=== PATIENT | male | born 1955 | race Caucasian/White ===

== ENCOUNTER 2020-01-03 07:41 | Day surgery (SDC) | payer OTHER ==
[~2020-01-03 07:41] MED LIST: Lactated Ringers 1,000 ML IV SCH
[2020-01-03] MEDS ORDERED: Propofol 200 MG/20 ML SDV ONE ×2 (08:03→10:34)
[2020-01-03] MEDS ORDERED: fentaNYL 100 MCG/2 ML SDV ONE (08:03)
--- NOTE | 2020-01-03 15:01 | OR ---
PRE-OPERATIVE DIAGNOSIS: Positive Cologuard screening. This is the patient's first colonoscopy. He denies any known family history of colon cancer or colon polyps. POST-OPERATIVE DIAGNOSES: 1. 12 mm polyp at 25 cm from the anal verge. This was removed with 2 passes of the hot snare. 2. Otherwise normal-appearing colonic mucosa as well as normal-appearing distal ileum. PROCEDURE: Colonoscopy with polypectomy x1 using hot snare x2 passes. SURGEON: Wiley Loza M.D. ANESTHESIA: Monitored anesthesia care. BOWEL PREP: Good. DESCRIPTION OF PROCEDURE: Fidencio is a 64-year-old male who was brought to the endoscopy suite after discussing risks and benefits of the procedure. Informed consent was obtained for conscious sedation and colonoscopy with or without biopsy and/or polypectomy. We also discussed possibility of missed lesions. Pre-procedure exam was unremarkable. IV, oxygen, and monitors were placed. The patient was placed in the left lateral decubitus position. Sedation was administered and a digital rectal exam was performed and unremarkable. Colonoscope was passed into the rectum and slowly advanced all the way to the cecum. Cecum was viewed and photographed. Ileocecal valve was intubated and distal ileum was normal in appearance. The colonoscope was slowly withdrawn and the mucosa was closed observed in a direct circumferential manner. The ascending colon was unremarkable. The transverse colon was unremarkable. The descending colon was unremarkable. The sigmoid colon revealed 12 mm polyp at 25 cm from the anal verge. This was removed using 2 passes of the hot snare. Retroflexion was performed. Rectal mucosa unremarkable. Scope was removed. The patient tolerated the procedure well. The patient was monitored until that baseline status. Discharge instructions were reviewed and the patient was discharged in good condition. COMPLICATIONS: None. TOTAL TIME: 25 minutes. ESTIMATED BLOOD LOSS: Nil. RECOMMENDATIONS/FOLLOW-UP: We will await results of path report to determine ideal followup interval. I would like to kindly thank Manjit Larry for this referral. DMB: 01/03/2020 11:04:03 MODL: 01/03/2020 12:32:20 /[id number]
== END 2020-01-03 12:05 | disposition home or self-care (01) ==
LOC: VM.SDS 07:41
PROVIDERS: ATTEND Family Medicine
DX: D12.5 Benign neoplasm of sigmoid colon (principal); E78.00 Pure hypercholesterolemia, unspecified; E78.5 Hyperlipidemia, unspecified; Z01.812 Encounter for preprocedural laboratory examination; Z20.828 Contact with and (suspected) exposure to other viral communicable diseases; Z79.899 Other long term (current) drug therapy
CPT/HCPCS: 00811; 45385; 87635; J2704; J3010; J7120; U0002